=== PATIENT | female | born 1960 | race African-American/Black ===

== ENCOUNTER 2016-12-22 10:21 | Observation (INO) | payer OTHER ==
[~2016-12-22] VITALS: Ht 170.2 cm; Wt 103.0 kg
[~2016-12-22 10:21] MED LIST: AUGM875T PO; MUCI30TA2 PO; NAPR500 PO
[2016-12-22 10:25] VITALS: BP 181/101; PULSE 79; RESP 17; TEMP 97.9; O2SAT 98
[2016-12-22 10:54] VITALS: BP_SYST 176; BP_SYST 180; BP_DIAS 91; BP_DIAS 96; PULSE 56; RESP 16; RESP 18; O2SAT 100
--- NOTE | 2016-12-22 10:57 | PD ---
HPI Chief Complaint: Chest Pain Time Seen by Provider: 10:52 Travel History International Travel<30 days: No Contact w/Intl Traveler<30days: No Traveled to known affect area: No History of Present Illness HPI 56-year-old female with history of previous hypertension, status post gastric bypass, presents to the ER today because she states that she has been having worsening of intermittent chest pains which are substernal over the last few days, states that her blood pressure has been elevated, and currently is having a 7 out of 10-8 out of 10 chest pains. She states it radiates down her left arm. She denies any nausea, shortness of breath, or any other symptoms per chief states that she has also been anxious because she has had multiple family members due to heart attacks. She states that her mom had about 6 months ago and she has been more stressed out than usual. She had a cardiac stress test done several years ago which was negative. She has seen her primary care physician and had been given something for anxiety and a blood pressure medication, Toprol which she first took last night. She states that it has not improved her chest discomfort. Modifying Factors: None Associated Signs & Symptoms: Chest pains, elevated blood pressure Risk Factors: Chest pain PFSH Past Medical History Arthritis: Yes Anxiety: Yes Heart Rhythm Problems: No Cardiac Catheterization: Yes Cardiovascular Problems: Yes High Cholesterol: No Congestive Heart Failure: No Diabetes: No Diminished Hearing: No Hypertension: Yes Psychiatric: Yes Tetanus Vaccination: > 5 Years Influenza Vaccination: Yes Menopausal: Yes Past Surgical History Abdominal Surgery: Yes (GASTRIC BYPASS) Coronary Artery Bypass Graft: No Hysterectomy: Yes Other Surgery: Yes (BREAST REDUCTION) Family History Family Myocardial Infarction: Yes Social History Alcohol Use: Yes (socially) Tobacco Use: No Substance Use: No Allergies-Medications (Allergen,Severity, Reaction): Coded Allergies: No Known Allergies (Verified , 12/22/16) Reported Meds & Prescriptions Reported Meds & Active Scripts Active Active Prescriptions or Reported Medications Unobtainable Review of Systems Except as stated in HPI: all other systems reviewed are Neg Physical Exam Narrative GENERAL: Well-developed middle age -[place] female patient who is in mild distress, appears anxious, tearful. Awake and oriented 3. SKIN: Focused skin assessment warm/dry. HEAD: Atraumatic. Normocephalic. EYES: Pupils equal and round. No scleral icterus. No injection or drainage. ENT: No nasal bleeding or discharge. Mucous membranes pink and moist. NECK: Trachea midline. No JVD. CARDIOVASCULAR: Regular rate and rhythm. No murmur appreciated. Pulses are present and equal bilaterally. RESPIRATORY: No accessory muscle use. Clear to auscultation. Breath sounds equal bilaterally. GASTROINTESTINAL: Abdomen soft, non-tender, nondistended. Hepatic and splenic margins not palpable. MUSCULOSKELETAL: No obvious deformities. No clubbing. No cyanosis. No edema. NEUROLOGICAL: Awake and alert. No obvious cranial nerve deficits. Motor grossly within normal limits. Normal speech. PSYCHIATRIC: Appropriate mood and affect; insight and judgment normal. Data Data Last Documented VS Vital Signs Date Time Temp Pulse Resp B/P Pulse Ox O2 Delivery O2 Flow Rate FiO2 12/22/16 10:43 58 16 100 Room Air 12/22/16 10:25 97.9 181/101 Orders Electrocardiogram (12/22/16 ) Electrocardiogram (12/22/16 10:53) Ckmb (Isoenzyme) Profile (12/22/16 10:53) Complete Blood Count With Diff (12/22/16 10:53) Comprehensive Metabolic Panel (12/22/16 10:53) Magnesium (Mg) (12/22/16 10:53) Prothrombin Time / Inr (Pt) (12/22/16 10:53) Act Partial Throm Time (Ptt) (12/22/16 10:53) Troponin I (12/22/16 10:53) Chest, Single Ap (12/22/16 10:53) Ecg Monitoring (12/22/16 10:53) Bilateral Bp Monitoring (12/22/16 10:53) Iv Access Insert/Monitor (12/22/16 10:53) Oximetry (12/22/16 10:53) Oxygen Administration (12/22/16 10:53) Aspirin (Aspirin) (12/22/16 11:00) Nitroglycerin 2% Oint (Nitroglycerin 2% (12/22/16 11:00) Sodium Chloride 0.9% Flush (Ns Flush) (12/22/16 11:00) Metoprolol Tartrate (Lopressor) (12/22/16 11:00) CKMB (12/22/16 11:00) CKMB% (12/22/16 11:00) Labs Laboratory Tests Test 12/22/16 11:00 White Blood Count 3.4 TH/MM3 Red Blood Count 3.97 MIL/MM3 Hemoglobin 12.2 GM/DL Hematocrit 38.1 % Mean Corpuscular Volume 95.9 FL Mean Corpuscular Hemoglobin 30.7 PG Mean Corpuscular Hemoglobin 32.0 % Concent Red Cell Distribution Width 14.7 % Platelet Count 228 TH/MM3 Mean Platelet Volume 8.9 FL Neutrophils (%) (Auto) 59.4 % Lymphocytes (%) (Auto) 31.8 % Monocytes (%) (Auto) 7.0 % Eosinophils (%) (Auto) 1.4 % Basophils (%) (Auto) 0.4 % Neutrophils # (Auto) 2.0 TH/MM3 Lymphocytes # (Auto) 1.1 TH/MM3 Monocytes # (Auto) 0.2 TH/MM3 Eosinophils # (Auto) 0.0 TH/MM3 Basophils # (Auto) 0.0 TH/MM3 CBC Comment DIFF FINAL Differential Comment Prothrombin Time 10.9 SEC Prothromb Time International 1.0 RATIO Ratio Activated Partial 25.0 SEC Thromboplast Time Sodium Level 143 MEQ/L Potassium Level 4.0 MEQ/L Chloride Level 111 MEQ/L Carbon Dioxide Level 27.4 MEQ/L Anion Gap 5 MEQ/L Blood Urea Nitrogen 17 MG/DL Creatinine 0.73 MG/DL Estimat Glomerular Filtration 99 ML/MIN Rate Random Glucose 93 MG/DL Calcium Level 8.7 MG/DL Magnesium Level 2.0 MG/DL Total Bilirubin 0.8 MG/DL Aspartate Amino Transf 20 U/L (AST/SGOT) Alanine Aminotransferase 25 U/L (ALT/SGPT) Alkaline Phosphatase 146 U/L Total Creatine Kinase 229 U/L Creatine Kinase MB 1.7 NG/ML Creatine Kinase MB % 0.7 % Troponin I LESS THAN 0.02 NG/ML Total Protein 6.7 GM/DL Albumin 3.7 GM/DL [facility] Medical Decision Making Medical Screen Exam Complete: Yes Emergency Medical Condition: Yes Medical Record Reviewed: Yes Interpretation(s) EKG shows NSR, no ST elevation or depression, and no arrhythmias. No significant T-wave inversions. Laboratory Tests Test 12/22/16 11:00 White Blood Count 3.4 TH/MM3 (4.0-11.0) Red Blood Count 3.97 MIL/MM3 (4.00-5.30) Chloride Level 111 MEQ/L (98-107) Alkaline Phosphatase 146 U/L (45-117) Total Creatine Kinase 229 U/L (26-192) Troponin I LESS THAN 0.02 NG/ML (0.02-0.05) Last 24 hours Impressions Chest X-Ray 12/22/16 1053 Signed Impressions: Service Date/Time: Thursday, December 22, 2016 11:04 - CONCLUSION: No acute disease. Damon Gray MD FACR Differential Diagnosis Chest pains, anxiety, hypertensionanxiety attack versus hypertensive urgency versus ACS versus dysrhythmias Narrative Course Chest pains. Patient was given aspirin, nitroglycerin, and metoprolol in the ER. Her blood pressure came down slightly and she has some improvement in headache. At this point, considering patient's strong family history and current chest pain, my plan would be to admit the patient for further evaluation and chest pain center. Diagnosis Primary Impression: Atypical chest pain Admitting Information Admitting Physician Requests: Admit Scripts Unable to Obtain Active Prescriptions or Reported Meds Colby Smith MD Dec 22, 2016 10:57
[2016-12-22] MEDS ORDERED: SODIUM CHLORIDE 0.9% FLUSH 10 ML FLUSH IVF PRN (11:00)
[2016-12-22] MEDS ORDERED: ASPIRIN 325 MG TAB PO ONE (11:00)
[2016-12-22] MEDS ORDERED: METOPROLOL TARTRATE 25 MG TAB PO ONE (11:00)
[2016-12-22] MEDS ORDERED: NITROGLYCERIN 2% OINT 1 GM PACKET TOP ONE (11:00)
--- NOTE | 2016-12-22 11:11 | RADRPT ---
EXAM DATE/TIME: 12/22/2016 11:04 [facility] COMPARISON: CHEST SINGLE AP, November 09, 2014, 9:08. INDICATIONS : Left sided chest pains x 2 days. MEDICAL HISTORY : Hypertension. SURGICAL HISTORY : None. ENCOUNTER: Initial ACUITY: 1 day PAIN SCORE: 8/10 LOCATION: Bilateral chest FINDINGS: A single view of the chest demonstrates the lungs to be symmetrically aerated without evidence of mas s, infiltrate or effusion. The cardiomediastinal contours are unremarkable. Osseous structures are intact. CONCLUSION: No acute disease. aDmon Gray MD FACR on December 22, 2016 at 11:09 Board Certified Radiologist. This report was verified electronically.
[2016-12-22 11:25] LABS: BASOPHIL % 0.4 % (0.0-2.0); EOSINOPHIL % 1.4 % (0.0-4.0); HEMATOCRIT 38.1 % (35.0-46.0); HEMO FLAGS DIFF FINAL; LYMPH % 31.8 % (9.0-44.0); LYMPHOCYTE # 1.1 TH/MM3 (1.0-4.8); MEAN CELL VOLUME 95.9 FL (80.0-100.0); MEAN CORPUSCULAR HEMOGLOBIN 30.7 PG (27.0-34.0); NEUT % 59.4 % (16.0-70.0); PLATELET COUNT 228 TH/MM3 (150-450); RED BLOOD COUNT 3.97 MIL/MM3 (4.00-5.30); RED CELL DISTRIBUTION WIDTH 14.7 % (11.6-17.2); WHITE BLOOD COUNT 3.4 TH/MM3 (4.0-11.0)
[2016-12-22 11:39] LABS: PROTHROMBIN TIME - PATIENT 10.9 SEC (9.8-11.6)
[2016-12-22 11:59] LABS: ALT (GPT) 25 U/L (10-53); ANION GAP 5 MEQ/L (5-15); AST (GOT) 20 U/L (15-37); BICARBONATE 27.4 MEQ/L (21.0-32.0); BLOOD UREA NITROGEN 17 MG/DL (7-18); CHLORIDE 111 MEQ/L (98-107); GLOMERULAR FILTRATION RATE 99 ML/MIN (>89); SODIUM (NA) 143 MEQ/L (136-145)
[2016-12-22 12:03] LABS: ALKALINE PHOSPHATASE 146 U/L (45-117); CREATINE KINASE 229 U/L (26-192); TOTAL BILIRUBIN ADULT 0.8 MG/DL (0.2-1.0)
[2016-12-22 12:15] LABS: CKMB 1.7 NG/ML (0.5-3.6)
[2016-12-22 12:38] VITALS: BP 135/77; PULSE 61; RESP 16; TEMP 97.8; O2SAT 100
[2016-12-22] MEDS ORDERED: NITROGLYCERIN 0.4 MG SL 25 TABS/BTL SL PRN (13:00)
[2016-12-22] MEDS ORDERED: ACETAMINOPHEN 500 MG CPLT PO PRN (13:00)
[2016-12-22] MEDS ORDERED: ONDANSETRON HCL 4 MG/2 ML VIAL IV PRN (13:00)
[2016-12-22 13:53] VITALS: BP 145/88; PULSE 58; RESP 16; TEMP 98; O2SAT 99
--- NOTE | 2016-12-22 14:23 | HHI.HP ---
[facility] Primary Care Physician Afia Trammell MD Chief Complaint Chest pain History of Present Illness 56-year-old female with newly diagnosed hypertension presents to the emergency room complaining of frontal headache, lightheadedness, generalized upper back pain, and left anterior chest pain. Over the past few she has experienced increasing sharp pains in her left anterior chest. No radiation. No associated symptoms. Bending over makes pain worse. Breathing does not affect pain. Duration seconds. No known precipitating or relieving factors. 1 to primary care provider Tuesday and was given metoprolol for blood pressure and anxiety. She took both medications yesterday. Today she continued to feel lightheaded and a headache and took her blood pressure and it was elevated therefore she came to the emergency room for further evaluation. Endorses situational stress over the recent of her mother. (Niesha Rubin) Review of Systems General: No fatigue,weakness, fever, chills, or recent illness. HEENT: Endorses she experiences a frontal headache when her blood pressure is elevated. No vision changes, no nasal congestion or drainage, no dysphasia CV: As stated above. No current chest pain or pressure. No palpitations or intermittent leg pain. RESP: No SOB, cough, wheeze, or recent URI GI: No nausea, vomiting, bowel changes, diarrhea, constipation, pain, distention , melena, or blood in the stool. No change in appetite, no unintentional weight gain or weight loss. : No dysuria, urgency, frequency EXT: No lower leg edema, no paraesthesias MS: No discomfort or change in ROM NEURO: No change in memory, dizziness, difficulty with balance, LOC, motor/ sensory deficits PSYCH: Recently given a prescription for anxiety. Endorses situational stress and depression since mother's 6 months ago. 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 SKIN: No rashes, no concerning lesions (Niesha Rubin) Past Family Social History Allergies: Coded Allergies: No Known Allergies (Verified , 12/22/16) Past Medical History Sleep apnea, hyperlipidemia, and hypertension resolved after 75 pound weight loss. Recently diagnosed hypertension Tuesday. Past Surgical History Gastric bypass, hysterectomy, breast reduction Reported Medications Reported Meds & Active Scripts Active Metroprolol dose unknown daily "Anti-antianxiety" medication-does not remember name of medication or dose. Active Ordered Medications Current Medications Medications (Trade) Dose Ordered Sig/Yadira Route Start Time Stop Time Status Last Admin (Tylenol) 500 mg Q4H PRN PO 12/22/16 13:00 12/22/16 13:35 (Zofran Inj) 4 mg Q6H PRN IV 12/22/16 13:00 (Nitrostat Sl) 0.4 mg Q5M PRN SL 12/22/16 13:00 (Aspirin) 325 mg DAILY PO 12/23/16 09:00 Family History Father age 53-CA, sister age 62-[place] Social History No known diabetes or hyperlipidemia. Recently had lipid panel drawn yesterday morning. Known Hypertension. Lifelong nonsmoker. Denies any alcohol or illegal drug use. Single. Works at [employer]. Past cardiac testing No recent stress testing. 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 11/10/14 Jessie scanunremarkable (Niesha Rubin) Physical Exam Vital Signs Vital Signs Date Time Temp Pulse Resp B/P Pulse Ox O2 Delivery O2 Flow Rate FiO2 12/22/16 13:53 98.0 58 16 145/88 99 Room Air 12/22/16 12:38 97.8 61 16 135/77 100 Room Air 12/22/16 10:54 100 Room Air 12/22/16 10:54 16 100 Room Air 12/22/16 10:54 56 18 180/96 100 Room Air 176/91 12/22/16 10:43 58 16 100 Room Air 12/22/16 10:25 97.9 79 17 181/101 98 Physical Exam GENERAL: Alert WN, WD, NAD, pleasant, female HEAD: NC, AT EYES: Sclera clear, conjunctiva without injection, pupils equal and round ENT: Mucous membranes pink and moist NECK: Supple, no masses, trachea midline CV: RRR, without murmur, rub, gallop, no JVD, S1-S2 no S3-S4. No carotid bruits. RESP: Clear lungs throughout bilateral, no crackles, wheeze, rhonchi, symmetrical chest rise, nonlabored, able to speak in full sentences ABD: Soft, NT, ND, no masses, positive bowel tones EXT: Pulses +24, no dependent edema MS: Normal tone 4 extremities, nontender, no obvious deformities, full range of motion NEURO: CN II through CN XII grossly intact, motor strength 5/5, gait WNL PSYCH: A+O 3, flat affect, appropriate speech, appropriate mood and affect, insight and judgment SKIN: Normal turgor, normal texture, no lesions, no rashes, brisk cap refill, even hair distribution Laboratory Laboratory Tests Test 12/22/16 11:00 White Blood Count 3.4 Red Blood Count 3.97 Hemoglobin 12.2 Hematocrit 38.1 Mean Corpuscular Volume 95.9 Mean Corpuscular Hemoglobin 30.7 Mean Corpuscular Hemoglobin 32.0 Concent Red Cell Distribution Width 14.7 Platelet Count 228 Mean Platelet Volume 8.9 Neutrophils (%) (Auto) 59.4 Lymphocytes (%) (Auto) 31.8 Monocytes (%) (Auto) 7.0 Eosinophils (%) (Auto) 1.4 Basophils (%) (Auto) 0.4 Neutrophils # (Auto) 2.0 Lymphocytes # (Auto) 1.1 Monocytes # (Auto) 0.2 Eosinophils # (Auto) 0.0 Basophils # (Auto) 0.0 CBC Comment DIFF FINAL Differential Comment Prothrombin Time 10.9 Prothromb Time International 1.0 Ratio Activated Partial 25.0 Thromboplast Time Sodium Level 143 Potassium Level 4.0 Chloride Level 111 Carbon Dioxide Level 27.4 Anion Gap 5 Blood Urea Nitrogen 17 Creatinine 0.73 Estimat Glomerular Filtration 99 Rate Random Glucose 93 Calcium Level 8.7 Magnesium Level 2.0 Total Bilirubin 0.8 Aspartate Amino Transf 20 (AST/SGOT) Alanine Aminotransferase 25 (ALT/SGPT) Alkaline Phosphatase 146 Total Creatine Kinase 229 Creatine Kinase MB 1.7 Creatine Kinase MB % 0.7 Troponin I LESS THAN 0.02 Total Protein 6.7 Albumin 3.7 (Niesha Rubin) Result Diagram: 12/22/16 1100 12/22/16 1100 Imaging Last Impressions Chest X-Ray 12/22/16 1053 Signed Impressions: Service Date/Time: Thursday, December 22, 2016 11:04 - CONCLUSION: No acute disease. Damon Gray MD FACR Course EKGs 2 EKGs show normal sinus rhythm with no ST or T-segment changes (Niesha Rubin) Assessment and Plan Assessment and Plan Chest painadmitted to chest pain center. Ruled out with 2 sets of EKGs and cardiac enzymes. Was seen and evaluated by Dr. Luis Gutierrez. Patient underwent an exercise treadmill was unremarkable. Will be later discharged this evening. Encouraged daily cardiovascular exercise and to follow-up with PCP regarding lipid panel. Patient is agreeable to this plan of care Hypertensioncontinue metoprolol. Keep a blood pressure log and take with you to your next PCP appointment. Education provided on long-term affects of uncontrolled hypertension and encouraged tight blood pressure control. Anxietycontinue anti-anxiety medication as prescribed by her PCP. Encouraged finding a support group to speak with regarding the recent of her mother. (Niesha Rubin) Assessment and Plan Agree with above. Atypical chest pain with strong family history. Will plan stress test. Discuss lipid management and possibly taking statin pending ACC risk profile (Luis Gutierrez MD) Niesha Rubin Dec 22, 2016 14:23 Luis Gutierrez MD Dec 22, 2016 16:41
[2016-12-22 14:38] LABS: CREATINE KINASE 214 U/L (26-192)
[2016-12-22 14:50] LABS: CKMB 1.4 NG/ML (0.5-3.6)
[2016-12-22 15:33] VITALS: BP 132/68; PULSE 56; RESP 19; O2SAT 97
[2016-12-22 17:42] VITALS: BP 158/92; PULSE 69; RESP 20; TEMP 98.4; O2SAT 98
--- NOTE | 2016-12-22 17:56 | HHI.DCPOC ---
Discharge Care Plan Diagnosis: (1) Atypical chest pain (2) Hypertension (3) Situational stress Goals to Promote Your Health * To prevent worsening of your condition and complications * To maintain your health at the optimal level Directions to Meet Your Goals Take your medications as prescribed Follow your dietary instruction Follow activity as directed Keep your appointments as scheduled Take your immunizations and boosters as scheduled If your symptoms worsen call your PCP, if no PCP go to Urgent Care Center or Emergency Room Smoking is Dangerous to Your Health. Avoid second hand smoke Call the 24-hour hour crisis hotline for domestic abuse at Niesha Rubin Dec 22, 2016 17:55
[2016-12-22] MEDS ORDERED: SODIUM CHLORIDE 0.9% FLUSH 10 ML FLUSH IV FLUSH SCH (21:00)
[2016-12-23] MEDS ORDERED: ASPIRIN 325 MG TAB PO SCH (09:00)
--- NOTE | 2016-12-23 14:07 | TR ---
Date Performed: 12/22/2016 Time Performed: 17:11:23 DOCTOR: Rubina Bolaños DRUG LIST: CLINICAL HISTORY: CHEST PAIN REASON FOR TEST: Chest pain REASON FOR ENDING: OBSERVATION: CONCLUSION: Urban protocol completed. Stopped sec to reaching target heart rate and leg fatigue. Maximum ER=983 Target HR Achieved=86.0% Maximum NI=191/84 Total Exercise Time=6:20. No reprod chest pain. Rare PVC. Good exercise tolerance. No st t seg changes to sugg ischemia. Normal bp response. Re covery quick and unremarkable. COMMENTS:
--- NOTE | 2016-12-23 14:09 | EKG ---
Date Performed: 12/22/2016 Time Performed: 13:42:29 PTAGE: 56 years EKG: SINUS BRADYCARDIA WITH SINUS ARRHYTHMIA BORDERLINE ECG Since PREVIOUS TRACING , no significant change noted PREVIOUS TRACIN12/22/2016 10.36 DOCTOR: Rubina Bolaños Interpretating Date/Time 12/23/2016 14:05:06
--- NOTE | 2016-12-23 14:10 | EKG ---
Date Performed: 12/22/2016 Time Performed: 10:36:11 PTAGE: 56 years EKG: Sinus rhythm NORMAL ECG Since PREVIOUS TRACING , no significant change noted PREVIOUS TRACIN07/06/2016 10.47 DOCTOR: Rubina Bolaños Interpretating Date/Time 12/23/2016 14:05:49
== END 2016-12-22 18:36 | disposition home or self-care (01) ==
LOC: NEPE 10:21 → NEDA 12:29 → NEDH 14:33 → NEPHCDU 17:16
PROVIDERS: ADMIT Family Medicine; ATTEND Family Medicine
DX: R07.9 Chest pain, unspecified (principal); I10 Essential (primary) hypertension; Z98.84 Bariatric surgery status; F41.9 Anxiety disorder, unspecified; R51 Headache; R42 Dizziness and giddiness; M54.9 Dorsalgia, unspecified; G47.30 Sleep apnea, unspecified; E78.5 Hyperlipidemia, unspecified; R63.4 Abnormal weight loss; R00.1 Bradycardia, unspecified; I49.8 Other specified cardiac arrhythmias
CPT/HCPCS: 71010; 80053; 82550; 82552; 83735; 84484; 85025; 85610; 85730; 93005; 93017; 99285; G0378